=== PATIENT | male | born 2000 | race African-American/Black ===

== ENCOUNTER 2021-05-16 21:02 | Emergency (ER) | payer SELFPAY ==
[2021-05-16 21:09] VITALS: BP 154/82; PULSE 75; RESP 18; TEMP 36.3; O2SAT 97
--- NOTE | 2021-05-16 21:15 | DI.RAD_ITS ---
Exam(s) XR PORTABLE CHEST AP EXAM: XR PORTABLE CHEST AP CLINICAL HISTORY: PUI, SOB, R/O PNA TECHNIQUE: 2D digital imaging was performed of the chest. One image was obtained. An AP view was ob tained. COMPARISON: No exams were available for comparison FINDINGS: Examination is limited by poor inspiration and crowding of the pulmonary vasculature. MEDIASTINUM: Normal. HEART: Normal. PULMONARY VASCULATURE: Normal. LUNGS: Clear. PLEURAL SPACE: No pleural effusion or pneumothorax. BONE:Within normal limits for the patient's age. OTHER FINDINGS:Normal. IMPRESSION: No definite acute pulmonary findings. A PA and lateral view of the chest may be considered for furthe r evaluation. DATA REPOSITORY: RADIATION DOSE DELIVERED:
--- NOTE | 2021-05-16 21:21 | W.ED.GENAD ---
Discharge Plan Disposition Patient Disposition: HOME Condition: Stable Discharge Details Clinical Impression: URI (upper respiratory infection) Primary Care Provider: Unknown,Unknown ED Provider: Margot Pugh Home Meds and New Rx's Prescriptions: No Action No Known Home Meds RF: 0 Discharge Instructions Instructions: Upper Respiratory Infection (ED) Additional Instructions: Today the Covid swab was negative. Chest x-ray shows no evidence of pneumonia. Use the albuterol inhaler 1 or 2 puffs every 4-6 hours as needed for shortness of breath or wheezing. Follow up with primary care provider in 3-5 days. Return to ED sooner if any worsening or concerns. Increase oral fluids. Take Tylenol or ibuprofen every 4-6 hours as needed for pain and swelling. Stand Alone Forms: School Release Discharge Data Discharge Date/Time-TO BE ENTERED AT DEPARTURE: 05/16/21 22:45 Medical Decision Making 21-year-old male presents to the ER with chief complaint of cough which is worsened over the last couple of days associated with shortness of breath, wheezing. He report increased pain from cough to his throat chest. Denies any fever chills. Does report sick contacts. Patient is vaccinated with vaccinated in January. Did not take any medication prior to arrival. Reported history of asthma not currently taking any inhalers or medications for this. Denies any drug allergies no home medications. On initial exam ANO x3 speaking in full sentences vital signs stable. No significant respiratory distress or increased work of breathing noted. He does have some inspiratory and expiratory wheezes on the right upper and lower lobe. Covid test, albuterol ipratropium neb, chest x-ray ordered at this time Imaging protocol: XR of the chest. Views: 1 view. COMPARISON: No relevant prior studies available. FINDINGS: Low lung volumes noted Lungs: Mild peribronchial thickening. No consolidation. Pleural spaces: No pleural effusion. No pneumothorax. Heart/Mediastinum: No cardiomegaly. Bones/joints: Unremarkable. IMPRESSION: Mild small airways disease suspected No focal consolidation Thank you for allowing us to participate in the care of your patient. Dictated and Authenticated by: Joseph Mata MD Patient given albuterol inhaler and instructed on home care. Patient discharged in hemodynamically stable condition, ambulatory in department. This text was generated using [employer] system, please disregard any oddities of phrase or misspellings. HPI General Mode of arrival: ambulatory. Date/Time Provider Initiated Documentation: 05/16/21 21:05. Limitations to Documentation: no limitations. Information obtained by: patient and RN notes reviewed. HPI Narrative: 21-year-old male presents to the ER with chief complaint of cough which is worsened over the last couple of days associated with shortness of breath, wheezing. He report increased pain from cough to his throat chest. Denies any fever chills. Does report sick contacts. Patient is vaccinated with vaccinated in January. Did not take any medication prior to arrival. Reported history of asthma not currently taking any inhalers or medications for this. Denies any drug allergies no home medications. On initial exam ANO x3 speaking in full sentences vital signs stable. No significant respiratory distress or increased work of breathing noted. He does have some inspiratory and expiratory wheezes on the right upper and lower lobe. Related Data Home Medications Medication Instructions Recorded Confirmed Unknown [No Known Home Meds] 05/16/21 05/16/21 Allergies Allergy/AdvReac Type Severity Reaction Status Date / Time No Known Allergies Allergy Unverified 05/16/21 21:12 General Stated Complaint: RespSymp NARENDRA: 3 Review of Systems All systems reviewed & are unremarkable except as noted in HPI and below Cardiovascular Cardiovascular: Reports chest pain and Reports dyspnea Respiratory Respiratory: Reports chest congestion, Reports cough, Reports pain with cough, Reports dyspnea and Reports wheezing Allergic/Immunologic Allergic/Immunologic: Reports wheezing [facility] Medical History Asthma Social History Smoking/Tobacco Use Status: Never Smoking risk assessment performed?: Yes Alcohol Intake: never Substance use type: does not use Do you feel safe at home: Yes Do you feel safe in your relationship?: Yes Exam Narrative Exam Narrative: Constitutional: Alert and oriented x3. Appears stated age. Normal body habitus. Head: Normocephalic, no trauma. Eyes: Pupils PERRL, Red reflex noted, EOM's intact. Eyelids symmetrical without lesions, discharge, or swelling. ENT: Bilateral TM's WNL, External ear normal to inspection, no mastoid TTP, swelling, or erythema, Nasal turbinates WNL, no nasal discharge. Normal dentition, Posterior pharynx WNL, no exudate. Chest: RRR, Normal S1, S2, distal pulses intact. Resp: Inspiratory expiratory wheezes right upper and right lower lobes with auscultation. Abdomen: Soft, non-distended, Normoactive bowel sounds all 4 quads. Musculoskeletal: Normal gait, 5/5 strength to all four extremities. Skin: No suspicious rashes or lesions. Capillary refill less than 2 sec. Neurologic: Cranial nerves II-XII intact. Alert and oriented x 3. Motor: No deficits noted. Sensory: Intact bilaterally all 4 extremities. Reflexes: DTR's intact bilaterally.. Hematologic/Lymphatic: No ecchymosis, no lymphadenopathy. Course Vital Signs Vital signs: Vital Signs Temperature 36.3 C L 05/16/21 21:09 Pulse 75 05/16/21 21:09 Respiratory Rate 18 05/16/21 21:09 Blood Pressure 154/82 H 05/16/21 21:09 Pulse Oximetry 97 05/16/21 21:09 Temperature 36.3 C L 05/16/21 21:09 Temperature Source Skin 05/16/21 21:09 Pulse 75 05/16/21 21:09 Respiratory Rate 18 05/16/21 21:09 Respiratory Effort 05/16/21 21:13 Blood Pressure 154/82 H 05/16/21 21:09 Pulse Oximetry 97 05/16/21 21:09 Pain Level 2 05/16/21 21:09
[2021-05-16 21:32] VITALS: PULSE 71; RESP 16; RESP 4; O2SAT 99
[2021-05-16] MEDS: Albuterol/Ipratropium 3 ML UPD VIAL UPD (21:32)
[2021-05-16 21:36] LABS: Source Nasal/Nares
--- NOTE | 2021-05-16 21:45 | DI.VRAD_ITS ---
PROCEDURE INFORMATION: Exam: XR Chest Exam date and time: 05/16/2021 9:21 PM Age: 21 years old Clinical indication: Shortness of breath; Patient HX: Pui, SOB, R/O pna TECHNIQUE: Imaging protocol: XR of the chest. Views: 1 view. COMPARISON: No relevant prior studies available. FINDINGS: Low lung volumes noted Lungs: Mild peribronchial thickening. No consolidation. Pleural spaces: No pleural effusion. No pneumothorax. Heart/Mediastinum: No cardiomegaly. Bones/joints: Unremarkable. IMPRESSION: Mild small airways disease suspected No focal consolidation Dictated and Authenticated by: Joseph Mata MD. Ordering:SONG Frost MD
[2021-05-16 22:34] LABS: COVID-19 PCR Negative (Negative)
[2021-05-16 22:47] VITALS: BP 127/62; PULSE 72; RESP 18; O2SAT 98
[2021-05-16] MEDS: Albuterol HFA 8 GM 60 PUFF INH IH (22:47)
== END 2021-05-16 22:45 | disposition home or self-care (01) ==
PROVIDERS: Emergency Provider Registered Nurse Emergency
DX: J06.9 Acute upper respiratory infection, unspecified (principal); R05.9 Cough, unspecified; R06.02 Shortness of breath
CPT/HCPCS: 87635; 94640; 99283; 71045; J7620

== ENCOUNTER 2021-09-20 01:40 | Outpatient (CLI) | payer SELFPAY ==
[2021-09-20 16:57] LABS: Abs Immature Grans 0.02 10^3/uL (0.0-0.06); Absolute Basophil Count 0.05 10^3/uL (0.0-0.2); Absolute Eosinophil Count 0.09 10^3/uL (0.0-0.7); Absolute Lymphocyte Count 3.63 10^3/uL (1.2-3.4); Absolute Monocyte Count 0.71 10^3/uL (0.1-0.8); Absolute Neutrophil Count 4.42 10^3/uL (1.2-6.7); Basophils % 0.6; HCT 45.2 % (40.0-50.0); HGB 14.4 g/dL (13.5-17.5); Immature Grans % 0.2; Lymphocytes % 40.7; MCH 25.6 pg (27.0-33.0); MCHC 31.9 % (32.0-36.0); MCV 80.4 fL (80-95); Neutrophils % 49.5; Nucleated RBC 0 %; Platelet Count 235 10^3/uL (130-400); RBC 5.62 10^6/uL (4.36-5.78); RDW 14.5 % (11.8-14.1); RDW-SD 42.2 fL; WBC 8.92 10^3/uL (4.4-10.8)
[2021-09-20 17:50] LABS: ALT 32 U/L (16-63); AST 28 U/L (15-37); Albumin 3.9 g/dL (3.4-5.0); Alkaline Phosphatase 87 U/L (46-116); Amylase 107 U/L (25-115); Anion Gap 8.9 mmol/L (3-11); BUN 14 mg/dL (7-18); Bilirubin, Total 0.3 mg/dL (0.2-1.0); CO2 24.1 mmol/L (21.0-32.0); CREATININE 1.3 mg/dL (0.70-1.30); Calcium 8.4 mg/dL (8.5-10.1); Chloride 108 mmol/L (98-107); Glucose 88 mg/dL (74-106); Lipase 266 U/L (73-393); Potassium 4.2 mmol/L (3.5-5.1); Sodium 141 mmol/L (136-145); TSH (W/Ref FT4) 1.96 uIU/mL (0.36-3.74); Total Protein 6.9 g/dL (6.4-8.2)
== END 2021-09-20 01:41 | disposition home or self-care (01) ==
LOC: LBO 01:40
PROVIDERS: Visit Provider Physician Assistant
DX: R11.10 Vomiting, unspecified (principal)
CPT/HCPCS: 36415; 80053; 83690; 82150; 84443; 85025

== ENCOUNTER 2021-10-19 02:59 | Outpatient (CLI) | payer SELFPAY ==
[2021-10-24 12:44] LABS: IgA 158 mg/dL (85-499); Interpretation (See Note); Tissue Transglutaminase IgA <1.2 U/mL (<4.0)
== END 2021-10-19 03:00 | disposition home or self-care (01) ==
LOC: LBO 02:59
PROVIDERS: Visit Provider Physician Assistant
DX: R10.84 Generalized abdominal pain (principal)
CPT/HCPCS: 36415; 82784; 83516

== ENCOUNTER 2021-11-04 12:33 | Emergency (ER) | payer OTHER, SELFPAY ==
[2021-11-04 12:41] VITALS: BP 146/83; PULSE 76; RESP 18; TEMP 36.7; O2SAT 99
--- NOTE | 2021-11-04 13:30 | ED.GENADUL_ITS ---
Discharge Plan Disposition Patient Disposition: HOME Condition: Stable Discharge Details Clinical Impression: Cellulitis of scalp Primary Care Provider: Unknown,Unknown ED Provider: Sanjeev Pang Home Meds and New Rx's Prescriptions: New sulfamethoxazole-trimethoprim [Bactrim DS] 800-160 mg tablet 1 tab PO BID Qty: 20 0RF Continued sertraline 50 mg tablet 50 mg DAILY 0RF Label Comments: TAKE ONE TABLET BY MOUTH EVERY DAY IN THE MORNING albuterol sulfate 90 mcg/actuation HFA aerosol inhaler 1 puff INHALATION PRN PRN0RF Label Comments: INHALE 2 (TWO) PUFFS EVERY 6 (SIX) HOURS NEEDED FOR WHEEZING DISP ONE INHALER . Discharge Instructions Instructions: Cellulitis (ED) Additional Instructions: Bactrim as directed. Warm soaks and/or compresses every 2 hours for 20 minutes. Please watch for new or worsening symptoms and return to the ER for any concerns. Stand Alone Forms: Work Release Medical Decision Making 21-year-old gentleman presents with a lump on his posterior scalp that has been present for months but became painful over the past 24 hours. Patient appears well, nontoxic, nonseptic. No meningeal signs. No pointing abscess. Difficult to determine whether this is localized cellulitis or a post occipital node inflammation, either way antibiotics is reasonable. We will initiate Bactrim and recommend warm soaks and/or compresses every 2 hours for 20 minutes. Patient requesting a work note for the entire weekend. Standard discharge and return precautions were provided. Patient understands, is agreeable to this plan, and has no additional questions or concerns upon discharge. This documentation was generated using [employer] dictation system, please disregard any oddities of phrase or misspellings. Medical Records Medical records reviewed: Yes I reviewed the patient's medical records. HPI General Mode of arrival: ambulatory . Date/Time Provider Initiated Documentation: 11/04/21 13:16 . Limitations to Documentation: no limitations . Information obtained by: patient . History of Present Illness 21 year old M presents to the emergency department with the chief complaint of scalp bump/pain, described as moderate, with intensity rated at 6. Quality is described as aching, and is localized to the head. Patient reports no radiation. Patient started experiencing this day(s) (1 day of pain, present for months) and it has been constant. improves with No relieving factors improve symptom(s), No exacerbating factors reported . Patient notes no other symptoms.. Patient did receive the following treatments prior to arrival, none Related Data Home Medications Medication Instructions Recorded Confirmed albuterol sulfate 90 mcg/actuation 1 puff INHALATION PRN PRN 11/04/21 11/04/21 aerosol inhaler sertraline 50 mg tablet 50 mg DAILY 11/04/21 11/04/21 sulfamethoxazole 800 1 tab PO BID #20 tab 11/04/21 mg-trimethoprim 160 mg tablet (Bactrim DS) Previous Rx's Medication Instructions Recorded sulfamethoxazole 800 1 tab PO BID #20 tab 11/04/21 mg-trimethoprim 160 mg tablet (Bactrim DS) Allergies Allergy/AdvReac Type Severity Reaction Status Date / Time No Known Allergies Allergy Unverified 05/16/21 21:12 General Stated Complaint: RashLesion NARENDRA: 4 Review of Systems Constitutional Constitutional: Denies fever(s) and Denies headache(s) Eyes Eyes: Denies change in vision ENT Ears, Nose, Mouth, and Throat: Denies headache(s), Denies nasal congestion, Denies neck pain and Denies sore throat Musculoskeletal Musculoskeletal: Denies neck pain Integumentary/Breasts Skin/Breast: Denies rash Neurologic Neurologic: Denies headache(s) PFSH All Active Problems URI (upper respiratory infection) (Acute) Cellulitis of scalp (Acute) Medical History Asthma Social History Smoking/Tobacco Use Status: Never Smoking risk assessment performed?: Yes Alcohol Intake: never Substance use type: does not use Do you feel safe at home: Yes Do you feel safe in your relationship?: Yes Exam Const General: cooperative, healthy appearing, comfortable and no acute distress Orientation: alert, awake and oriented x3 HENMT Head: normocephalic and atraumatic Head images: 1. Mild swelling, erythema, warmth, tenderness. There is no lymphangitic streaking, fluctuance, pointing abscess. Skin is intact Face and sinus: normal facial exam Mouth: moist mucous membranes Eyes General: appearance normal, both eyes and all related structures Conjunctivae: conjunctivae normal Neck Neck: normal visual inspection, full ROM, no lymphadenopathy, no meningeal signs, trachea midline, supple and nontender Resp Effort & Inspection: normal respiratory effort and able to speak in complete sentences Skin General skin exam: no rashes or lesions noted Other: Unremarkable except for as noted above Neuro General: patient alert, patient awake, moves all extremities and no focal motor deficits Sensory Exam: no sensory deficits noted Psych Appearance: grossly normal Mental Status: mental status grossly normal Course Vital Signs Vital signs: Vital Signs Temperature 36.7 C 11/04/21 12:41 Pulse 76 11/04/21 12:41 Respiratory Rate 18 11/04/21 12:41 Blood Pressure 146/83 H 11/04/21 12:41 Pulse Oximetry 99 11/04/21 12:41 Temperature 36.7 C 11/04/21 12:41 Temperature Source Tympanic 11/04/21 12:41 Pulse 76 11/04/21 12:41 Respiratory Rate 18 11/04/21 12:41 Respiratory Effort 11/04/21 12:45 Blood Pressure 146/83 H 11/04/21 12:41 Blood Pressure Position Supine 11/04/21 12:41 Pulse Oximetry 99 11/04/21 12:41 Oxygen Delivery Method Room Air 11/04/21 12:41 Oxygen Flow Rate 0 11/04/21 12:41 Pain Level 10 11/04/21 12:41 PAWSS Have you Been Recently Intoxicated or Drunk Within the Last 30 days?: No Have you Ever Experienced Previous Episodes of Alcohol Withdrawal?: No Have you ever Experienced Withdrawal Seizures?: No Have you ever Experienced Delirium Tremens(DT)s?: No Have you ever undergone Alcohol Rehabilitation Treatment (i.e, inpt ot outpatient treatment programs)?: No Have you ever Experienced Blackouts?: No Have you ever Combined Alcohol with other Downers within the last 90 days?: No Have you ever Combined Alcohol with any other Substance of Abuse during the last 90 days?: No Positive Blood Alcohol level on Presentation? [PCS.BAL]: No Evidence of Increased Autonomic Activity (i.e. HR>120, tremor, sweating, agitation, nausea)?: No Result: 0
== END 2021-11-04 13:43 | disposition home or self-care (01) ==
PROVIDERS: Emergency Provider Physician Assistant
DX: L03.811 Cellulitis of head [any part, except face] (principal)
CPT/HCPCS: 99283

== ENCOUNTER 2021-11-06 14:03 | Emergency (ER) | payer OTHER, SELFPAY ==
[2021-11-06 14:10] VITALS: BP 136/75; PULSE 70; RESP 18; TEMP 37; O2SAT 98
--- NOTE | 2021-11-06 14:56 | ED.GENADUL_ITS ---
Discharge Plan Disposition Patient Disposition: HOME Condition: Stable Discharge Details Clinical Impression: Neck pain, Cellulitis of scalp, Lymphadenopathy, cervical Primary Care Provider: Unknown,Unknown ED Provider: Aden Paige Home Meds and New Rx's Prescriptions: New cyclobenzaprine 5 mg tablet 5 mg PO TID PRN (Reason: muscle spasm) Qty: 10 0RF diclofenac potassium 50 mg tablet 50 mg PO TID PRN (Reason: pain) Qty: 14 0RF Continued acetaminophen 500 mg Tablet 1,000 mg PO PRN PRN0RF sertraline 50 mg tablet 50 mg PO 0RF Label Comments: TAKE ONE TABLET BY MOUTH EVERY DAY IN THE MORNING albuterol sulfate 90 mcg/actuation HFA aerosol inhaler 1 puff INHALATION PRN PRN0RF Label Comments: INHALE 2 (TWO) PUFFS EVERY 6 (SIX) HOURS NEEDED FOR WHEEZING DISP ONE INHALER . sulfamethoxazole-trimethoprim [Bactrim DS] 800-160 mg tablet 1 tab PO BID Qty: 20 0RF Discharge Instructions Instructions: Lymphadenopathy (ED), Neck Pain (ED) Additional Instructions: As discussed please continue to take your antibiotics as prescribed along with your other daily medications. You have also been prescribed a pain medication and a muscle relaxer to take as needed for discomfort. Please do not take the pain medication until bedtime tonight given the potential interaction with the medication that you were given in the emergency department. If you have any new or significant worsening of symptoms or you fail to improve over the next week feel free to follow-up with your primary care provider or return to the emergency department for reassessment Discharge Data Discharge Date/Time-TO BE ENTERED AT DEPARTURE: 11/06/21 15:19 Medical Decision Making Patient presenting to the emergency department for reevaluation of neck pain. Previous documentation reviewed and question of scalp cellulitis. Patient does state that symptoms have been going on for a while with all symptoms starting when patient had his hair braided. Physical exam shows a swollen posterior lymph node that is tender that causes reproducible pain and discomfort. Patient denies any focal neurological symptoms but does state radiation of pain with pressure to the swollen lymph node. Exam is otherwise unremarkable for any focal neurological findings. Did discuss risk versus benefit of radiological imaging given that patient is returning but otherwise find no worrisome physical exam findings. After shared decision-making was utilized and risk versus benefit was discussed decided to have patient use muscle relaxer and NSAID to see if this treats the pain while he is on the antibiotic and monitor symptoms. Patient states clear understanding to return for lack of improvement, worsening symptoms, or change in symptoms. At this time I would consider further imaging for more evaluation but given no ultrasound or MRI availability only option at this point is CT imaging which I do not know how beneficial this to be. After discussion of diagnosis and plan of care patient has no further needs, questions, or concerns and states clear understanding to return to the emergency department for any worsening symptoms. HPI General Mode of arrival: ambulatory . Date/Time Provider Initiated Documentation: 11/06/21 14:06 . Limitations to Documentation: no limitations . Information obtained by: patient, RN notes reviewed and old records reviewed . History of Present Illness 21 year old M presents to the emergency department with the chief complaint of right sided neck pain, described as moderate, with intensity rated at 8. Quality is described as sharp, and is localized to the neck and right. Patient extremity. Patient started experiencing this week(s) (3) and it has been constant and intermittent. improves with No relieving factors improve symptom(s), Other factors that worsen symptoms (pressure on neck) . Patient notes denies fever/chills, loss of appetite and malaise. Patient did receive the following treatments prior to arrival, other Related Data Home Medications Medication Instructions Recorded Confirmed albuterol sulfate 90 mcg/actuation 1 puff INHALATION PRN PRN 11/04/21 11/06/21 aerosol inhaler sulfamethoxazole 800 1 tab PO BID #20 tab 11/04/21 11/06/21 mg-trimethoprim 160 mg tablet (Bactrim DS) acetaminophen 500 mg tablet 1,000 mg PO PRN PRN 11/06/21 11/06/21 cyclobenzaprine 5 mg tablet 5 mg PO TID PRN #10 tab 11/06/21 diclofenac potassium 50 mg tablet 50 mg PO TID PRN #14 tab 11/06/21 sertraline 50 mg tablet 50 mg PO 11/06/21 Previous Rx's Medication Instructions Recorded sulfamethoxazole 800 1 tab PO BID #20 tab 11/04/21 mg-trimethoprim 160 mg tablet (Bactrim DS) cyclobenzaprine 5 mg tablet 5 mg PO TID PRN #10 tab 11/06/21 diclofenac potassium 50 mg tablet 50 mg PO TID PRN #14 tab 11/06/21 Allergies Allergy/AdvReac Type Severity Reaction Status Date / Time No Known Allergies Allergy Unverified 11/06/21 14:16 General Stated Complaint: GenMedical NARENDRA: 3 Review of Systems Constitutional Constitutional: Denies chills, Denies fever(s), Reports headache(s) and Denies malaise Eyes Eyes: Reports blurry vision (With headache ) ENT Ears, Nose, Mouth, and Throat: Reports headache(s), Denies nasal congestion, Reports neck pain, Denies odynophagia and Denies sore throat Cardiovascular Cardiovascular: Denies chest pain and Denies dyspnea Respiratory Respiratory: Denies cough and Denies dyspnea Gastrointestinal Gastrointestinal: Denies abdominal pain, Denies nausea, Denies odynophagia and Denies vomiting Musculoskeletal Musculoskeletal: Denies back pain and Reports neck pain Integumentary/Breasts Skin/Breast: Reports as per HPI, Denies rash, Reports skin pain, Reports skin swelling and Denies skin ulcer Neurologic Neurologic: Reports headache(s), Denies localized weakness, Denies sensory deficit and Denies paresthesias PFSH All Active Problems (Updated 11/06/21 @ 15:08 by Aden Paige NP) URI (upper respiratory infection) (Acute) Cellulitis of scalp (Acute) Neck pain (Acute) Lymphadenopathy, cervical (Acute) Medical History Asthma Social History Smoking/Tobacco Use Status: Never Smoking risk assessment performed?: Yes Alcohol Intake: never Substance use type: does not use Do you feel safe at home: Yes Do you feel safe in your relationship?: Yes Exam Const General: cooperative, healthy appearing, no acute distress and well groomed Orientation: alert, awake and oriented x3 HENMT Head: normal to inspection Ears: hearing grossly normal bilaterally and TM's normal bilaterally Mouth: oral mucosae normal and moist mucous membranes Throat: posterior oropharynx normal Eyes Visual Wagner: normal visual wagner by confrontation Alignment and Position: alignment normal Periorbital: periorbital findings normal Eyelids: eyelids normal Sclera: sclerae normal Cornea: corneas normal Pupils: PERRL EOM: EOM intact bilaterally Neck Neck: normal visual inspection, full ROM and no meningeal signs Lymphatic: lymphadenopathy right posterior cervical soft and tender; Negative for not fixed and not warm Resp Effort & Inspection: normal respiratory effort and able to speak in complete sentences Auscultation: clear to auscultation bilaterally Cardio Rate: regular rate Rhythm: regular rhythm Heart Sounds: S1 normal and S2 normal Neuro General: patient alert, patient awake, patient oriented x3, gait normal, tone normal, moves all extremities, CN's II-XI intact bilaterally and not confused Cognition: normal cognition Speech: speech normal Motor: muscle tone normal throughout, strength 5/5 throughout, no pronator drift, no movement abnormalities noted and no fasciculations Sensory Exam: no sensory deficits noted Course Vital Signs Vital signs: Vital Signs Temperature 37 C 11/06/21 14:10 Pulse 70 11/06/21 14:10 Respiratory Rate 18 11/06/21 14:10 Blood Pressure 136/75 11/06/21 14:10 Pulse Oximetry 98 11/06/21 14:10 Temperature 37 C 11/06/21 14:10 Temperature Source Temporal Artery Scan 11/06/21 14:10 Pulse 70 11/06/21 14:10 Respiratory Rate 18 11/06/21 14:10 Respiratory Effort 11/06/21 14:42 Respiratory Depth Normal 11/06/21 14:42 Respiratory Pattern Normal 11/06/21 14:42 Blood Pressure 136/75 11/06/21 14:10 Blood Pressure Position Sitting 11/06/21 14:10 Pulse Oximetry 98 11/06/21 14:10 Oxygen Delivery Method Room Air 11/06/21 14:10 Oxygen Flow Rate 0 11/06/21 14:10 Pain Level 10 11/06/21 14:10
[2021-11-06] MEDS: Ketorolac 30 MG/ML VIAL IM (15:21)
== END 2021-11-06 15:19 | disposition home or self-care (01) ==
PROVIDERS: Emergency Provider Nurse Practitioner Family
DX: M54.2 Cervicalgia (principal); R59.0 Localized enlarged lymph nodes; L03.811 Cellulitis of head [any part, except face]
CPT/HCPCS: 96372; 99284; 99283; J1885

== ENCOUNTER 2022-10-11 10:46 | Emergency (ER) | payer OTHER, SELFPAY ==
[2022-10-11 10:50] VITALS: PULSE 79; RESP 18; TEMP 36.7; O2SAT 97
--- NOTE | 2022-10-11 11:15 | DI.RAD_ITS ---
Exam(s) XR KNEE LT 3V AP,LAT,THUY EXAM: XR KNEE LT 3V AP,LAT,THUY CLINICAL HISTORY: pain, knee gave out yesterday. TECHNIQUE: 2D digital imaging was performed. Three views. COMPARISON: No exams were available for comparison FINDINGS: BONES: No acute fracture is present. No bony destructive lesion is seen. JOINTS: The knee is normally aligned. No joint effusion is seen. SOFT TISSUE: Normal. IMPRESSION: Normal radiographs of the left knee. DATA REPOSITORY: RADIATION DOSE DELIVERED:
[2022-10-11] MEDS: Ibuprofen 600 MG TAB PO (11:36)
--- NOTE | 2022-10-11 11:40 | ED.GENADUL_ITS ---
Discharge Plan Disposition Patient Disposition: Home Condition: Stable Discharge Details Clinical Impression: Sprain of left knee Primary Care Provider: Unknown,Unknown ED Provider: Chava Verde Home Meds and New Rx's Prescriptions: Continued acetaminophen 500 mg Tablet 1,000 mg PO PRN PRN sertraline 50 mg tablet 50 mg PO DAILY Patient Comments: TAKE ONE TABLET BY MOUTH EVERY DAY IN THE MORNING albuterol sulfate 90 mcg/actuation HFA aerosol inhaler 1 puff INHALATION PRN PRN Patient Comments: INHALE 2 (TWO) PUFFS EVERY 6 (SIX) HOURS NEEDED FOR WHEEZING DISP ONE INHALER . Discontinued cyclobenzaprine 5 mg tablet 5 mg PO TID PRN (Reason: muscle spasm) Qty: 10 0RF Patient Comments: not taking diclofenac potassium 50 mg tablet 50 mg PO TID PRN (Reason: pain) Qty: 14 0RF Patient Comments: not taking sulfamethoxazole-trimethoprim [Bactrim DS] 800-160 mg tablet 1 tab PO BID Qty: 20 0RF Patient Comments: not taking Discharge Instructions Instructions: Knee Sprain (ED) Additional Instructions: Please take ibuprofen over the counter. Take 600mg by mouth every 6 hours as needed for pain. Wear the hinged knee brace over the next 2 weeks to provide support. Please contact your primary care physician to arrange follow-up. If you continue to have pain in your knee after 1 week, follow-up with orthopedics. Return to the ER immediately for any worsening or new concerning symptoms. Referrals: [facility] [Provider Group] [facility] [Outside] Medical Decision Making 22-year-old here after left knee gave out while he was bearing weight on it with other leg elevated on a chair yesterday. Patient has mild swelling and tenderness of the knee with no other significant inflammatory changes. L igaments are intact. Patient neurovascular intact distally. Suspect knee sprain. X-ray of the knee was interpreted by radiology: negative Patient is not having significant difficulty with ambulating. I will provide a hinged knee brace for support and advised supportive care with next week. I instructed him to follow-up with orthopedics should symptoms persist greater than 1 week. Usual customary discharge instructions were reviewed with the patient. HPI General Mode of arrival: ambulatory . Date/Time Provider Initiated Documentation: 10/11/22 11:09 . Limitations to Documentation: no limitations . Information obtained by: patient . HPI Narrative: 22-year-old male presents with chief complaint of left knee pain. Patient notes knee gave out yesterday. He states he was standing on his leg with his other leg propped up on a chair and he felt like it collapsed and shifted. Patient denies direct trauma to the knee. He has had similar episode involving left knee in the remote past. Related Data Home Medications Medication Instructions Recorded Confirmed albuterol sulfate 90 mcg/actuation 1 puff inhalation PRN PRN 11/04/21 10/11/22 aerosol inhaler acetaminophen 500 mg tablet 1,000 mg PO PRN PRN 11/06/21 10/11/22 sertraline 50 mg tablet 50 mg PO DAILY 11/06/21 10/11/22 Allergies Allergy/AdvReac Type Severity Reaction Status Date / Time No Known Allergies Allergy Unverified 10/11/22 10:52 General Stated Complaint: Orthopedic NARENDRA: 4 Review of Systems Constitutional Constitutional: Denies weakness Musculoskeletal Musculoskeletal: Reports as per HPI Neurologic Neurologic: Denies sensory deficit and Denies weakness PFSH All Active Problems (Updated 10/11/22 @ 11:45 by Chava Verde MD) URI (upper respiratory infection) (Acute) Sprain of left knee (Acute) Medical History Asthma Social History Smoking/Tobacco Use Status: Never Smoking risk assessment performed?: Yes Alcohol Intake: never Substance use type: marijuana Do you feel safe at home: Yes Do you feel safe in your relationship?: Yes Exam Extrem Left lower extremity: knee Details: tenderness Location: of the popliteal fossa, of the medial joint line and of the pre-patellar area, swelling, normal ROM and knee ligament exam normal; no deformity and no unusual warmth and foot Details: vascular exam Details: dorsalis pedis pulse present (2+) and motor-sensory exam Details: light-touch normal Course Vital Signs Vital signs: Vital Signs Temperature 36.7 C 10/11/22 10:50 Pulse 79 10/11/22 10:50 Respiratory Rate 18 10/11/22 10:50 Pulse Oximetry 97 10/11/22 10:50 Temperature 36.7 C 10/11/22 10:50 Temperature Source Oral 10/11/22 10:50 Pulse 79 10/11/22 10:50 Respiratory Rate 18 10/11/22 10:50 Respiratory Effort Normal, Non-Labored 10/11/22 10:52 Pulse Oximetry 97 10/11/22 10:50 Oxygen Delivery Method Room Air 10/11/22 10:50 Oxygen Flow Rate 0 10/11/22 10:50 Pain Level 6 10/11/22 11:27
--- NOTE | 2022-10-16 10:46 | NUR.NOTE ---
Nursing Note: Accessed patient chart to print provider note to be faxed to [facility] for billing purposes.
== END 2022-10-11 13:31 | disposition home or self-care (01) ==
PROVIDERS: Emergency Provider Student in an Organized Health Care Education/Training Program
DX: S83.92XA Sprain of unspecified site of left knee, initial encounter (principal); X50.9XXA Other and unspecified overexertion or strenuous movements or postures, initial encounter; J45.909 Unspecified asthma, uncomplicated
CPT/HCPCS: 73562; 99283

== ENCOUNTER 2022-10-14 22:23 | Emergency (ER) | payer OTHER, SELFPAY ==
[2022-10-14 22:30] VITALS: BP 132/73; PULSE 75; RESP 18; TEMP 37.4; O2SAT 99
--- NOTE | 2022-10-14 22:43 | ED.GENADUL_ITS ---
Discharge Plan Disposition Patient Disposition: Home Discharge Details Clinical Impression: Sinus headache Primary Care Provider: None,None ED Provider: Margot Pugh Home Meds and New Rx's Prescriptions: New amoxicillin-pot clavulanate 875-125 mg tablet 1 tab PO BID 7 Days Qty: 14 0RF No Action acetaminophen 500 mg Tablet 1,000 mg PO PRN PRN sertraline 50 mg tablet 50 mg PO DAILY Patient Comments: TAKE ONE TABLET BY MOUTH EVERY DAY IN THE MORNING albuterol sulfate 90 mcg/actuation HFA aerosol inhaler 1 puff INHALATION PRN PRN Patient Comments: INHALE 2 (TWO) PUFFS EVERY 6 (SIX) HOURS NEEDED FOR WHEEZING DISP ONE INHALER . Discharge Instructions Instructions: Sinusitis (ED) Additional Instructions: Please take uchx-wbw-nxpokyz decongestant such as dextromethorphan or Sudafed for sinus headache. Please take Tylenol or Ibuprofen with food every 4-6 hours as needed for pain and swelling. You may also take NyQuil or other similar medication. Take the antibiotic as directed. Take it with yogurt or probiotic. Follow up with primary care provider in 3-5 days. Return to ED sooner if any worsening or concerns. Increase oral fluids. Medical Decision Making 22-year-old male presents to the ER with chief complaint of sinus pressure and headache x2 days behind his eyes. Reports down hard time sleeping. States cough and cold URI type symptoms about a week ago. He has had Tylenol this morning but nothing since then. He also reports taking unknown [id number]-gti-yzkhizu nasal spray which did not help. Denies any fever chills sore throat ear pain or any other associated symptoms. Patient given Augmentin, Johnny-Synephrine nasal spray, ibuprofen. Instructed to take zwuj-vus-rzfyrem decongestant. This text was generated using [employer] dictation system, please disregard any oddities of phrase or misspellings. HPI General Mode of arrival: ambulatory . Date/Time Provider Initiated Documentation: 10/14/22 22:30 . Limitations to Documentation: no limitations . Information obtained by: patient, RN notes reviewed and old records reviewed . HPI Narrative: 22-year-old male presents to the ER with chief complaint of sinus pressure and headache x2 days behind his eyes. Reports down hard time sleeping. States cough and cold URI type symptoms about a week ago. He has had Tylenol this morning but nothing since then. He also reports taking unknown seyj-hxc-mpjkxmw nasal spray which did not help. Denies any fever chills sore throat ear pain or any other associated symptoms. Related Data Home Medications Medication Instructions Recorded Confirmed albuterol sulfate 90 mcg/actuation 1 puff inhalation PRN PRN 11/04/21 10/11/22 aerosol inhaler acetaminophen 500 mg tablet 1,000 mg PO PRN PRN 11/06/21 10/11/22 sertraline 50 mg tablet 50 mg PO DAILY 11/06/21 10/11/22 amoxicillin 875 mg-potassium 1 tab PO BID 7 days #14 tabs 10/14/22 clavulanate 125 mg tablet Previous Rx's Medication Instructions Recorded amoxicillin 875 mg-potassium 1 tab PO BID 7 days #14 tabs 10/14/22 clavulanate 125 mg tablet Allergies Allergy/AdvReac Type Severity Reaction Status Date / Time No Known Allergies Allergy Unverified 10/11/22 10:52 General Stated Complaint: GenMedical NARENDRA: 4 Review of Systems Constitutional Constitutional: Denies chills, Denies fever(s) and Reports headache(s) ENT Ears, Nose, Mouth, and Throat: Reports as per HPI, Reports headache(s), Reports sinus pain and Reports sinus pressure Neurologic Neurologic: Reports headache(s) PFSH All Active Problems (Updated 10/14/22 @ 22:53 by Margot Pugh NP) URI (upper respiratory infection) (Acute) Sprain of left knee (Acute) Sinus headache (Acute) Medical History Asthma Social History Smoking/Tobacco Use Status: Never Smoking risk assessment performed?: Yes Alcohol Intake: never Drug use: Never Substance use type: marijuana Do you feel safe at home: Yes Do you feel safe in your relationship?: Yes Exam Const General: cooperative, healthy appearing, comfortable, well developed and well groomed Nutritional Appearance: average body habitus Orientation: alert, awake and oriented x3 HENMT Head: normal to inspection and normocephalic Ears: hearing grossly normal bilaterally and TM's normal bilaterally General nose exam: external nose normal and other (Boggy nasal turbinates bilaterally) Face and sinus: sinus tenderness frontal Mouth: oral mucosae normal, lip normal, tongue normal, oropharynx normal and moist mucous membranes Teeth and gingiva: dentition normal Throat: posterior oropharynx normal, tonsils normal and uvula midline Course Vital Signs Vital signs: Vital Signs Temperature 37.4 C 10/14/22 22:30 Pulse 75 10/14/22 22:30 Respiratory Rate 18 10/14/22 22:30 Blood Pressure 132/73 10/14/22 22:30 Pulse Oximetry 99 10/14/22 22:30 Temperature 37.4 C 10/14/22 22:30 Temperature Source Oral 10/14/22 22:30 Pulse 75 10/14/22 22:30 Respiratory Rate 18 10/14/22 22:30 Respiratory Effort Normal 10/14/22 22:38 Respiratory Depth Normal 10/14/22 22:38 Respiratory Pattern Normal 10/14/22 22:38 Blood Pressure 132/73 10/14/22 22:30 Blood Pressure Position Sitting 10/14/22 22:30 Pulse Oximetry 99 10/14/22 22:30 Oxygen Delivery Method Room Air 10/14/22 22:30 Oxygen Flow Rate 0 10/14/22 22:30 Pain Level 10 10/14/22 22:30
[2022-10-14] MEDS: Amoxicillin 875/Clav. 125 TAB PO (22:56)
[2022-10-14] MEDS: Amox. 875/Clav. 125, 2 TABS/BTL 1 TAB PO (22:56)
[2022-10-14] MEDS: Ibuprofen 600 MG TAB PO (22:57)
[2022-10-14] MEDS: Phenylephrine SPRAY 1% 15 ML BTL NS (22:57)
== END 2022-10-14 23:05 | disposition home or self-care (01) ==
PROVIDERS: Emergency Provider Registered Nurse Emergency
DX: R51.9 Headache, unspecified (principal); J34.89 Other specified disorders of nose and nasal sinuses; J00 Acute nasopharyngitis [common cold]; J45.909 Unspecified asthma, uncomplicated
CPT/HCPCS: 99283; 99284